=== PATIENT | female | born 1985 | race Caucasian/White ===

== ENCOUNTER 2019-05-24 20:42 | Emergency (ER) | payer MEDICARE, SELFPAY ==
[2019-05-24 20:49] VITALS: BP 138/67; PULSE 89; RESP 18; TEMP 37.1; O2SAT 99
--- NOTE | 2019-05-24 20:51 | DI.RAD.S_ITS ---
PROCEDURE: XR FOOT LT MIN 3V INDICATIONS: struck table, lt dorsal foot pain TECHNIQUE: 3 views of the foot were acquired. COMPARISON: None. FINDINGS: Bones: No fractures or dislocations. No suspicious bony lesions. Soft tissues: No tibiotalar joint effusion. Achilles tendon appears normal. IMPRESSION: No trauma found. Dictated by: Last Elizalde M.D. on 05/24/2019 at 21:04 Approved by: Last Elizalde M.D. on 05/24/2019 at 21:05
--- NOTE | 2019-05-24 22:38 | ED_ITS ---
HPI - Extremity Injury (Lower) General Chief Complaint: Extremity Injury, Lower Stated Complaint: left foot injury Time Seen by Provider: 05/24/19 22:38 Source: patient Mode of arrival: Ambulatory Limitations: no limitations History of Present Illness HPI Narrative: 34-year-old female comes emergency department complaint of foot pain. About noon today she was walking when she kicked the foot of the table. She states that her 2nd and 3rd toe directly went into the table. Patient states she has had pain with weight-bearing over the front half of her foot she is able to walk on the heel without much issue. She states that flexing her toes backwards is quite uncomfortable. Patient noticed maybe some very mild swelling but no skin changes or bruising. She states it has not really improved as the day has gone by. Patient states there is some tingling but no numbness. She denies any other injuries. States she has a history of Crohn's and does not tolerate NSAIDs very well. She states that she had wrapped her foot in a sock and when she put her shoe on tightly actually felt significantly better. Related Data Home Medications Medication Instructions Recorded Confirmed lamotrigine [Lamictal] Unknown #0 12/20/16 propranolol Unknown #0 12/20/16 ziprasidone HCl [Geodon] Unknown #0 12/20/16 Previous Rx's Medication Instructions Recorded diazepam [Valium] 5 mg PO Q8HP PRN #15 tab 12/21/16 Allergies Allergy/AdvReac Type Severity Reaction Status Date / Time Sulfa (Sulfonamide Allergy Unknown Unverified 07/15/17 12:36 Antibiotics) [SULFA (SULFONAMIDE ANTIBIOTICS)] Review of Systems Review of Systems ROS Unobtainable: All systems reviewed & are unremarkable except as noted in HPI and below Exam Narrative Exam Narrative: GENERAL: Alert and oriented x three, well-nourished female in mild distress. HEENT: Head normocephalic, atraumatic, EOMI, pupils reactive, face symmetric, moist mucous membranes NECK: Supple, full range of motion EXTREMITIES: Normal range of motion, no clubbing or edema. Patient has tenderness over 2nd and 3rd metatarsal, no bony tenderness in the toes, ankle or rest of the lower extremity. There is no bruising, ecchymosis or swelling noted. Patient has 2+ dorsalis pedis. With 2+ tibialis. Full range of motion. Neurovascularly intact. NEUROLOGICAL: Cranial nerves II through XII grossly intact. Moving all extremities SKIN: Warm, dry, no petechiae, no rashes or lesions. Initial Vital Signs Initial Vital Signs: Vital Signs Temperature 98.8 F 05/24/19 20:49 Pulse Rate 89 05/24/19 20:49 Respiratory Rate 18 05/24/19 20:49 Blood Pressure 138/67 05/24/19 20:49 Pulse Oximetry 99 05/24/19 20:49 Course Orders Ordered: ED Orders 05/24/19 20:51 XR foot LT min 3V Stat Vital Signs Vital signs: Vital Signs - 8 hr 05/24/19 20:49 Temperature 98.8 F Pulse Rate [Left] 89 Respiratory Rate 18 Blood Pressure [Left Arm] 138/67 Pulse Oximetry 99 MDM - Extremity Injury (Lower) Imaging Data left foot xray: Radiologist's Impression: [address] [address] XRay Report Signed Patient: Jessica Hernandez [facility]#: [id number] : 1985Acct:[id number] Age/Sex: 34 / FDate of Service: 05/24/19 Loc: ED Accession Number: [id number] Procedure: XR foot LT min 3V Ordering Provider: Zoila Melissa D.O. PROCEDURE: XR FOOT LT MIN 3V INDICATIONS: struck table, lt dorsal foot pain TECHNIQUE: 3 views of the foot were acquired. COMPARISON: None. FINDINGS: Bones: No fractures or dislocations. No suspicious bony lesions. Soft tissues: No tibiotalar joint effusion. Achilles tendon appears normal. IMPRESSION: No trauma found. Dictated by: Last Elizalde M.D. on 05/24/2019 at 21:04 Approved by: Last Elizalde M.D. on 05/24/2019 at 21:05 [facility] Narrative Medical decision making narrative: X-ray is negative. Patient has some point tenderness. She states she is able to ambulate okay on her heel and crutches are deferred. We did do an Massimo wrap and she can do Tylenol as needed for pain she does not tolerate NSAIDs well. Discharge Plan Departure Patient Disposition: Home Clinical Impression: Acute pain of left foot Discharge Date/Time: 05/24/19 22:45 Instructions: DI for Foot Pain Activity Restrictions/Additional Instructions: Follow-up with primary care the next 7-10 days for recheck if your continuing to have pain in her foot. Occasionally people can have occult or very small fractures that are not visualized until the bone starts to heal. If you are asymptomatic you do not have to follow-up. You may continue with Tylenol up to a 1000 mg every 8 hours as needed for pain. Elevated affected body part to decrease swelling. OK to use ice pack on the affected body part. Use for 15-20 minutes each time, for 5-6x per day. If you develop worsening pain, numbness, tingling, discoloration of the affected body part, loosen the MASSIMO wrap, and either see your doctor for an urgent re-assessment, or return to the Emergency Department. Return to the Emergency Department for any new or worsening symptoms. Prescriptions: No Action lamotrigine [Lamictal] 25 MG tablet Unknown Qty: 0 RF: 0 ziprasidone HCl [Geodon] 20 MG capsule Unknown Qty: 0 RF: 0 propranolol 10 MG tablet Unknown Qty: 0 RF: 0 diazepam [Valium] 5 MG tablet 5 mg PO Q8HP PRNQty: 15 RF: 0
== END 2019-05-24 22:45 | disposition home or self-care (01) ==
PROVIDERS: Emergency Provider Emergency Medicine
DX: M79.672 Pain in left foot (principal)
CPT/HCPCS: 73630; 99283

== ENCOUNTER 2020-11-23 13:46 | Emergency (ER) | payer MEDICARE, MEDICAID, SELFPAY ==
[2020-11-23 13:51] VITALS: BP 126/84; PULSE 101; RESP 15; TEMP 37.2; O2SAT 98
--- NOTE | 2020-11-23 18:08 | ED.BACK ---
HPI - Back Pain/Injury <Geo Snell PA-C - Last Filed: 11/23/20 20:12> General Chief Complaint: Back Pain/Injury Stated Complaint: back/hip pain- hard to walk Time Seen by Provider: 11/23/20 18:01 Source: patient Limitations: no limitations History of Present Illness HPI Narrative: Jessica presents today with chief complaint right-sided lower back pain that radiates down the outside of her right leg. Pain started about 5 days ago while she was lifting up some groceries. She reports that she has had relatively consistent pain since this has occurred. Pain is made worse with bending forward and with rotational movements. She denies any previous injuries to her low back. She denies any significant fever, headache, vision changes, changes in bowel or bladder habits, rash, abdominal pain, nausea, vomiting, urinary symptoms or any other acute concerns or complaints at this time. Related Data Home Medications Medication Instructions Recorded Confirmed lamotrigine 25 mg tablet (Lamictal) Unknown #0 12/20/16 propranolol 10 mg tablet Unknown #0 12/20/16 ziprasidone HCl 20 mg capsule Unknown #0 12/20/16 (Geodon) Previous Rx's Medication Instructions Recorded diazepam 5 mg tablet (Valium) 5 mg PO Q8HP PRN #15 tab 12/21/16 methocarbamol 500 mg tablet 500 mg PO BID PRN #14 tab 11/23/20 Allergies Allergy/AdvReac Type Severity Reaction Status Date / Time Sulfa (Sulfonamide Allergy Unknown Verified 11/23/20 13:51 Antibiotics) [SULFA (SULFONAMIDE ANTIBIOTICS)] Review of Systems <Geo Snell PA-C - Last Filed: 11/23/20 20:12> Review of Systems Narrative: As per HPI Patient History <Geo Snell PA-C - Last Filed: 11/23/20 20:12> Social History Smoking Status: Current every day smoker Smoking Status: Current every day smoker tobacco type: vaping alcohol intake frequency: holidays/special occasions only Substance Use Type: does not use Exam <ROSA MARIA Rodríguez Last Filed: 11/23/20 20:12> Narrative Exam Narrative: Exam Narrative: Const General: cooperative, healthy appearing, comfortable, no acute distress, well developed and well groomed Nutritional Appearance: average body habitus Orientation: alert and oriented x3 HENMT Head: normal to inspection and atraumatic Ears: hearing grossly normal bilaterally Nose: external nose normal and nares normal Face and sinus: normal facial exam Neck Neck: normal visual inspection and supple Resp Effort & Inspection: normal respiratory effort, able to speak in complete sentences, no audible wheezes, not labored, no nasal flaring and no respiratory distress Neuro General: alert, oriented x3, limping gait, tone normal and moves all extremities Cognition: normal cognition Speech: speech normal Gait: Limping gait Psych Appearance: grossly normal and well kempt Mental Status: mental status grossly normal Speech and Movement: speech and movement normal Mood: congruent mood Affect: normal affect Initial Vital Signs Initial Vital Signs: Vital Signs Temperature 98.9 F 11/23/20 13:51 Pulse Rate 101 H 11/23/20 13:51 Respiratory Rate 15 11/23/20 13:51 Blood Pressure 126/84 11/23/20 13:51 Pulse Oximetry 98 11/23/20 13:51 <Zoila Melissa DO - Last Filed: 11/28/20 08:44> Initial Vital Signs Initial Vital Signs: Vital Signs Temperature 98.9 F 11/23/20 13:51 Pulse Rate 101 H 11/23/20 13:51 Respiratory Rate 15 11/23/20 13:51 Blood Pressure 126/84 11/23/20 13:51 Pulse Oximetry 98 11/23/20 13:51 Course <Geo Snell PA-C - Last Filed: 11/23/20 20:12> Orders Ordered: Discontinued Medications Ketorolac Tromethamine (Ketorolac 30 Mg/Ml Vial) 30 mg IM NOW ONE Stop: 11/23/20 18:26 Last Admin: 11/23/20 18:31 Dose: 30 mg Documented by: TAN Vital Signs Vital signs: Vital Signs - 8 hr 11/23/20 13:51 Temperature 98.9 F Pulse Rate 101 H Respiratory Rate 15 Blood Pressure 126/84 Pulse Oximetry 98 <DO Lesly Ruiz Last Filed: 11/28/20 08:44> Orders Ordered: Discontinued Medications Ketorolac Tromethamine (Ketorolac 30 Mg/Ml Vial) 30 mg IM NOW ONE Stop: 11/23/20 18:26 Last Admin: 11/23/20 18:31 Dose: 30 mg Documented by: TAN Vital Signs Vital signs: Vital Signs - 8 hr 11/23/20 13:51 Temperature 98.9 F Pulse Rate 101 H Respiratory Rate 15 Blood Pressure 126/84 Pulse Oximetry 98 MDM - Back Pain/Injury <Geo Snell PA-C - Last Filed: 11/23/20 20:12> MDM Narrative Medical decision making narrative: Differential diagnosis considered includes cauda equina, sacroiliitis, fracture, spondylolisthesis, meningitis. No systemic signs of illness noted at this time. She has a reassuring physical examination. Mechanism of injury is suggestive of muscular strain with acute sciatica. Recommend that we treat for this with strict ER return precautions. Return precautions were discussed with the patient. Patient verbalizes understanding and agrees to plan and has no further concerns at this time. Thank you A [id number] system was used with the dictation of this note. Please disregard any spelling or grammatical errors. Discharge Plan Departure Patient Disposition: Home Clinical Impression: Strain of lumbar region Qualifiers: Encounter type: initial encounter Qualified Code(s): S39.012A - Strain of muscle, fascia and tendon of lower back, initial encounter Sciatica Qualifiers: Laterality: right Qualified Code(s): M54.31 - Sciatica, right side Instructions: DI for Low Back Pain, DI for Sciatica Activity Restrictions/Additional Instructions: It was very nice to meet you this evening. Please apply warm compresses to your low back and do the stretching exercises that we discussed. Light range of motion and light exercise can also be quite helpful. Follow-up with your primary care provider if your symptoms do not improve in the next 7-10 days. If you experience fever, changes in bowel or bladder habits, significant worsening pain, or any other acute concerns do not hesitate to return for re-evaluation. Prescriptions: New methocarbamol 500 mg tablet 500 mg PO BID PRN (Reason: low back pain) Qty: 14 RF: 0 No Action lamotrigine [Lamictal] 25 MG tablet Unknown Qty: 0 RF: 0 ziprasidone HCl [Geodon] 20 MG capsule Unknown Qty: 0 RF: 0 propranolol 10 MG tablet Unknown Qty: 0 RF: 0 diazepam [Valium] 5 MG tablet 5 mg PO Q8HP PRNQty: 15 RF: 0 <Zoila Melissa, - Last Filed: 11/28/20 08:44> Cosign ED Attending Cosignature Attestation: I was immediately available in the department for consultation. Documentation has been reviewed.
[2020-11-23] MEDS: KETOROLAC 30 MG/ML VIAL IM (18:31)
[2020-11-23 19:00] VITALS: PULSE 78; RESP 14; O2SAT 99
--- NOTE | 2020-11-23 20:06 | PC.NURSE ---
walking w/ cane for pain control and support. c/o low back pain w/ radiation down right leg. Denies bowel / bladder incontinence.
== END 2020-11-23 19:01 | disposition home or self-care (01) ==
PROVIDERS: Emergency Provider Physician Assistant
DX: S39.012A Strain of muscle, fascia and tendon of lower back, initial encounter (principal); M54.31 Sciatica, right side
CPT/HCPCS: 96372; 99283; J1885

== ENCOUNTER → 2021-05-31 13:43 | Outpatient (CLI) | payer MEDICARE, MEDICAID, SELFPAY ==
--- NOTE | 2021-05-31 13:45 | DI.RAD.S_ITS ---
PROCEDURE: XR KNEE RT 3V INDICATIONS: knee pain TECHNIQUE: 3 views of the knee were acquired. COMPARISON: None. FINDINGS: Bones: No fractures or dislocations. No suspicious bony lesions. Soft tissues: No joint effusion. No suspicious soft tissue calcifications. IMPRESSION: No fracture. No osseous lesion. If symptoms and/or clinical suspicion for pathology persists, further assessment with repeat radiographs (7-10 days) or advanced imaging (e.g. CT, MRI or bone scan) should be considered. Dictated by: Chelsea Epstein MD, PhD on 05/31/2021 at 14:37 Approved by: Chelsea Epstein MD, PhD on 05/31/2021 at 14:37
== END ==
PROVIDERS: Referring Provider Nurse Practitioner Family; Visit Provider Nurse Practitioner Family
DX: M25.561 Pain in right knee (principal)
CPT/HCPCS: 73562